=== PATIENT | male | born 1990 | race Hispanic/Latino ===

== ENCOUNTER 2021-10-30 22:14 | Emergency (ER) | payer OTHER ==
[2021-10-30] MEDS ORDERED: Morphine 4 MG/ML VIAL ONE (22:45)
== END 2021-10-31 00:03 ==
LOC: ERS 22:14
DX: S05.12XA Contusion of eyeball and orbital tissues, left eye, initial encounter (principal); I10 Essential (primary) hypertension; W18.2XXA Fall in (into) shower or empty bathtub, initial encounter
CPT/HCPCS: 70450; 70486; 96372; J2270